=== PATIENT | female | born 1975 | race Asian ===

== ENCOUNTER 2021-10-24 12:30 | Emergency (ER) | payer SELFPAY | END 2021-10-24 14:55 | disposition left against medical advice (07) | LOC: ED 12:30 | DX: Z53.21 Procedure and treatment not carried out due to patient leaving prior to being seen by health care provider (principal) ==

== ENCOUNTER 2022-03-10 11:16 | Emergency (ER) | payer OTHER ==
--- NOTE | 2022-03-10 11:36 | ED Physician Documentation ---
PD HPI ABD PAIN - Stated complaint Stated Complaint: LT SIDE PX/VOMITING - Chief complaint Chief Complaint: Abd Pain - History obtained from History obtained from: Patient - History of Present Illness Timing - onset: How many hours ago (2 1/2), Today Timing - duration: Hours (2 1/2) Timing - details: Abrupt onset Quality: Cramping, Aching, Pain Location: LLQ Radiation: Lower back Improved by: No: Laying still Worsened by: Moving, Palpation Associated symptoms: Nausea, Vomiting. No: Fever, Diarrhea, Constipation, Dysuria, Hematuria Similar symptoms before: Has not had sx before (She had noticed a lump in that area periodically without notable tenderness.) Recently seen: Not recently seen Review of Systems Constitutional: denies: Fever, Chills Nose: denies: Rhinorrhea / runny nose, Congestion Throat: denies: Sore throat Respiratory: denies: Cough GI: reports: Abdominal Pain (just abrupt today) : denies: Dysuria, Frequency, Discharge Skin: denies: Rash, Lesions PD PAST MEDICAL HISTORY - Past Medical History Cardiovascular: None Respiratory: None Endocrine/Autoimmune: None GI: None - Present Medications Home Medications: Ambulatory Orders Medication Instructions Recorded Confirmed Escitalopram [Lexapro] 0 mg PO DAILY 03/10/22 03/10/22 lamoTRIgine [Lamictal Xr] 250 mg PO DAILY 03/10/22 03/10/22 traZODone [Desyrel] 25 mg PO HS 03/10/22 03/10/22 - Allergies Allergies/Adverse Reactions: Allergies Allergy/AdvReac Type Severity Reaction Status Date / Time No Known Drug Allergies Allergy Verified 03/10/22 11:23 PD ED PE NORMAL - Vitals Vital signs reviewed: Yes - General General: Alert and oriented X 3, Well developed/nourished, Other (She is appearing considerably uncomfortable left lower abdomen with nausea and vomiting on exam.) - Neck Neck: Supple, no meningeal sign, No adenopathy - Cardiac Cardiac: RRR, No murmur - Respiratory Respiratory: Clear bilaterally - Abdomen Abdomen: Normal bowel sounds, Soft, Non distended, No organomegaly, Other (There is a tender firm 3 to 4 cm lump in the left inguinal area. No skin redness or swelling. Bowel sounds are present and hyperactive. Nondistended abdomen.) - Rectal Rectal: Deferred - Back Back: No CVA TTP - Derm Derm: Normal color, Warm and dry, No rash - Neuro Neuro: Alert and oriented X 3, No motor deficit, Normal speech Results - Vitals Vitals: Vital Signs - 24 hr 03/10/22 03/10/22 03/10/22 11:23 11:45 13:28 Temperature 36.8 C 36.5 C Heart Rate 71 70 68 Respiratory 18 18 14 Rate Blood Pressure 100/59 L 118/81 H 118/80 O2 Saturation 99 100 100 Oxygen O2 Source Room air - Labs Labs: Laboratory Tests 03/10/22 03/10/22 11:35 11:35 WBC 8.6 RBC 4.74 Hgb 13.7 Hct 42.9 MCV 90.5 MCH 28.9 MCHC 31.9 L RDW 13.0 Plt Count 216 MPV 9.6 Neut # (Auto) 7.1 H Lymph # (Auto) 0.9 L [place] # (Auto) 0.4 Eos # (Auto) 0.1 Baso # (Auto) 0.1 Absolute Nucleated RBC 0.00 Nucleated RBC % 0.0 Sodium 141 Potassium 3.6 Chloride 104 Carbon Dioxide 27 Anion Gap 10.0 BUN 11 Creatinine 0.7 Estimated GFR (MDRD) 89 Glucose 125 H Calcium 9.4 Total Bilirubin 0.7 AST 29 ALT 35 Alkaline Phosphatase 37 L Total Protein 7.1 Albumin 4.4 Globulin 2.7 Albumin/Globulin Ratio 1.6 Lipase 31 - Rads (name of study) abd/pelvic CT Radiology: Prelim report reviewed (Left inguinal hernia with loop of bowel. Mi ld edema. No bowel obstruction. No kidney stones or other intra-abdominal process.), See rad report PD MEDICAL DECISION MAKING - ED course Complexity details: reviewed results, re-evaluated patient (The patient was given IV fluids antiemetic and pain medicine with repeat dose of pain medicine to allow for reduction of the incarcerated hernia with gentle pressure.), considered differential (She has a tender palpable mass at the inguinal area consistent with incarcerated hernia. She is having general pain and vomiting. Can assess scan to look for bowel obstruction. Also consider other alternatives such as kidney stone with incidental hernia.), d/w patient, d/w lean process deployment consultant (I talked with Dr. Sharp for close follow-up of the patient for herniorrhaphy.) Departure - Departure Disposition: 01 Home, Self Care Clinical Impression: Incarcerated inguinal hernia, unilateral Abdominal pain Qualifiers: Abdominal location: left lower quadrant Qualified Code(s): R10.32 - Left lower quadrant pain Vomiting Qualifiers: Vomiting type: unspecified Nausea presence: with nausea Qualified Code(s): R11.2 - Nausea with vomiting, unspecified Condition: Stable Record reviewed to determine appropriate education?: Yes Instructions: ED Hernia Inguinal Follow-Up: Qing Sharp MD [Provider Admit Priv/Credential] - Comments: No heavy lifting until follow-up with general surgery. Consider daily stool softener so you do not have to push harder such if any constipation. It did feel you had an incarcerated hernia which is now reduced. You may notice a lump periodically in that area as you had in the past. As long it is not hurting, tender or causing vomiting like this episode then just follow-up with surgery to discuss repair. If you have another episode of symptoms like today, first try lying down resting and apply some cool towels or ice to the area and gentle pressure for several minutes and see if it reduces with that. Otherwise return to the ER. You may notice some residual discomfort in the area through today and tomorrow. Tylenol or ibuprofen are okay to use. Follow-up with Dr. Sharp, general surgery regarding repair. Call for an appointment. Discharge Date/Time: 03/10/22 14:26
[2022-03-10 11:46] LABS: BASOPHILS # (AUTO) 0.1 10^3/uL (0.0-0.1); BASOPHILS % (AUTO) 0.9 %; EOSINOPHILS # (AUTO) 0.1 10^3/uL (0.0-0.7); EOSINOPHILS % (AUTO) 0.6 %; HCT - HEMATOCRIT 42.9 % (37.0-47.0); HGB - HEMOGLOBIN 13.7 g/dL (12.0-16.0); LYMPHOCYTES # (AUTO) 0.9 10^3/uL (1.5-3.5); MEAN CORPUSCULAR HEMOGLOBIN 28.9 pg (27.0-31.0); MEAN CORPUSCULAR HGB CONC 31.9 g/dL (32.0-36.0); MEAN CORPUSCULAR VOLUME 90.5 fL (81.0-99.0); MEAN PLATELET VOLUME 9.6 fL (7.9-10.8); MONOCYTES # (AUTO) 0.4 10^3/uL (0.0-1.0); MONOCYTES % (AUTO) 4.9 %; NEUTROPHILS # (AUTO) 7.1 10^3/uL (1.5-6.6); NEUTROPHILS % (AUTO) 82.3 %; PLT - PLATELET COUNT 216 10^3/uL (130-450); RED BLOOD COUNT 4.74 10^6/uL (4.20-5.40); WHITE BLOOD COUNT 8.6 x10^3/uL (4.8-10.8)
[2022-03-10 12:00] LABS: ALBUMIN 4.4 g/dL (3.2-5.5); ALBUMIN/GLOBULIN RATIO 1.6 (1.0-2.2); BILIRUBIN,TOTAL 0.7 mg/dL (0.2-1.0); CALCIUM 9.4 mg/dL (8.5-10.3); CREATININE 0.7 mg/dL (0.4-1.0); POTASSIUM 3.6 mmol/L (3.5-5.0); TOTAL PROTEIN 7.1 g/dL (6.7-8.2)
[2022-03-10] MEDS ORDERED: ONDANSETRON 4 MG/2 ML VIAL IVP STA (12:00)
[2022-03-10] MEDS ORDERED: KETOROLAC 15 MG/ML VIAL IVP STA (12:00)
[2022-03-10] MEDS ORDERED: SODIUM CHLORIDE 0.9% 1,000 ML IV STA (12:00)
[2022-03-10] MEDS ORDERED: IOVERSOL 320 50 ML VIAL ONE (12:15)
[2022-03-10] MEDS ORDERED: HYDROmorphone 2 MG/ML VIAL IVP STA (13:06)
--- NOTE | 2022-03-10 13:10 | CT Report ---
PROCEDURE: CT abdomen and pelvis with contrast INDICATIONS: LLQ pain abrupt this morning. ? inguinal hernia CONTRAST: IV CONTRAST: Optiray 320 ml: 100 PO CONTRAST: *NO PO CONTRAST TECHNIQUE: After the administration of contrast, 5 mm thick sections acquired from the diaphragms to the sym physis. 5 mm thick coronal and sagittal reformats were acquired. For radiation dose reduction, the following was used: automated exposure control, adjustment of mA and/or kV according to patient size . COMPARISON: None. FINDINGS: Image quality: Excellent. ABDOMEN: Lung bases: Lung bases are clear. Heart size is normal. Solid organs: Liver and spleen are normal in size and enhancement other than hepatic simple cysts. Gallbladder unremarkable. Biliary system is non dilated. Pancreas enhances normally. No adrenal no dules. Kidneys demonstrate normal size and enhancement, without hydronephrosis. Peritoneum and bowel: Bowel loops demonstrate normal wall thickness and caliber. No free fluid or a ir. There is a left inguinal hernia containing a loop of bowel. No evidence of bowel obstruction. Nodes and vessels: No retroperitoneal or mesenteric adenopathy by size criteria. Aorta and inferior vena cava are normal in size. Miscellaneous: No ventral hernias. PELVIS: Genitourinary: Bladder wall thickness is normal. Miscellaneous: No inguinal hernias or adenopathy. Bones: No suspicious bony lesions. No vertebral body compression fractures. IMPRESSION: 1. Left inguinal hernia contains a loop of small bowel. The neck of the hernia is dilated, but there is no evidence of bowel obstruction Reviewed by: Storm Carlton MD on 03/10/2022 12:09 PM KERRI Approved by: Storm Carlton MD on 03/10/2022 12:09 PM [email or web address] Station ID: [id number]
[2022-03-10] MEDS ORDERED: IOVERSOL 320 50 ML VIAL IVP ONE (13:25)
[2022-03-10 14:26] VITALS: BP 118/80
== END 2022-03-10 14:26 | disposition home or self-care (01) ==
LOC: ED 11:16
DX: K40.30 Unilateral inguinal hernia, with obstruction, without gangrene, not specified as recurrent (principal)
CPT/HCPCS: 36415; 74177; 80053; 83690; 85025; 96374; 96375; 99284; J1170